=== PATIENT | female | born 1995 | race Caucasian/White ===

== ENCOUNTER 2016-07-13 10:23 | Emergency (ER) | payer OTHER ==
[2016-07-13 10:32] VITALS: BP 122/74; BMI 34.2
--- NOTE | 2016-07-13 11:03 | DR.GENAD ---
HPI - PCP Primary Care Physician: Kael - HPI Comment HPI Comment: 7 WEEKS . STARTED HAVING VAGINAL BLEEDING 03:00AM TODAY. PATIENT IS GRAVIDA3 PARA2. SHE IS AB POSITIVE. LAST DELIVERY 2013. SPOTTED MID WITH UTI BUT NO HISTORY OF VAGINAL BLEEDING. PATIENT HAVE MILD LOWER ABDOMINAL CRAMPING. PATIENT HAVE NOT SEEN OD DR. CARRASCO. DENIES DYSURIA. HER HOME TEST WAS POSITIVE. - Complaint/Symptoms Chief Complaint Doctors Comments: , VAGINAL BLEEDING. Chief Complaint:: pt last period was on 05/22/16 pt is preg and not yet went to see a doctor. pt is bleeding at this time it started at 3am this morning - Nurses notes reviewed Nurses Notes Review: Yes - Source History Provided: Patient - Mode of Arrival Mode of Arrival: Ambulatory - Timing Onset of Chief Complaint: 07/13/16 Came on: Suddenly - Duration Duration: Constant Duration: Hours - Severity Severity: Moderate PMH - PMH Past Medical History: Yes Past Medical History: Asthma Past Surgical History: Yes Surgical History: Appendectomy, - Family History History of Family Medical Conditions: Yes Family Medical History: Diabetes Mellitus, Coronary Artery Disease, Hypertension - Social History Does patient currently use any type of tobacco product: Yes Have you used tobacco products in the last 12 months: Yes Type of Tobacco Use: Cigarettes How many years tobacco product used: 8 Does any household member use tobacco: No Alcohol Use: None Do you use any recreational Drugs:: No Lives With: Spouse Lives Where: Home - infectious screening In the last 2 months have you had wt loss of >10#?: NO Have you had fever, night sweats or hemotysis?: No Have you traveled outside the country in the last 6 months?: No Isolation: Standard ROS - Review of Systems Constitutional: No Symptoms Reported Eyes: No Symptoms Reported ENTM: No Symptoms Reported Respiratoy: No Symptoms Reported Cardiovascular: No Symptoms Reported Gastrointestinal/Abdominal: No Symptoms Reported Genitourinary: Pain (LOWER ABDOMINAL CRAMPING.), Bleeding Neurological: No Symptoms Reported Musculoskeletal: No Symptoms Reported Integumentary: No Symptoms Reported Hematologic/Lymphatic: No Symptoms Reported Endocrine: No Symptoms Reported All Other Systems: Reviewed and Negative PE - Vital Signs Vitals: Temperature 99 F Pulse Rate 94 Respiratory Rate 18 Blood Pressure [Left Radial 122/72 Artery] Blood Pressure 122/74 O2 Sat by Pulse Oximetry 100 - General Limitations: No Limitations General Appearance: Alert - Head Head Exam: Normal Inspection - Eyes Eye exam: Normal Appearance - ENT ENT Exam: Normal External Ear Exam External Ear Exam: Normal External Inspection TM/Canal Exam: Bilateral Normal Nose Exam: Normal Nose Exam Mouth Exam: Normal Inspection Throat Exam: Normal Inspection - Neck Neck Exam: Trachea Midline - Chest Chest Inspection: Normal Inspection - Respiratory Respiratory Exam: Normal Lung Sounds Bilat Respiratory Exam: Bilateral Clear to Auscultation - Cardiovascular Cardiovascular Exam: Regular Rate, Normal Rhythm, Normal Heart Sounds - Abdominal Exam Abdominal Exam: Normal Bowel Sounds, Soft. negative: Tenderness - Extremities Extremities Exam: Normal Inspection - Back Back Exam: Normal Inspection - Neurologic Neurological Exam: Alert, Oriented X3 - Psychiatric Psychiatric Exam: Normal Affect, Normal Mood - Skin Skin Exam: Normal Color MDM - Additional Information Additional Information Obtained From: Family - Differential Diagnosis Differential Diagnosis: VAGINAL BLEEDING DURING , THREATENED MISCARRIAGE, ABD. PAIN Course - Treatment Treatment: SEE ORDERS. - Education/Counseling Education/Counseling: Patient, Family, Education Educated On: Diagnosis, Needs for Follow Up ROR - Labs Reviewed Result Diagrams: 07/13/16 11:00 Laboratory: WBC 10.2 X10^3/uL (3.6-10.0) H 07/13/16 11:00 RBC 4.70 X10^6/uL (3.5-5.4) 07/13/16 11:00 Hgb 13.5 g/dL (12.0-16.0) 07/13/16 11:00 Hct 40.6 % (36.0-47.0) 07/13/16 11:00 MCV 86.3 fL (80.0-100.0) 07/13/16 11:00 MCH 28.8 pg (27.0-34.0) 07/13/16 11:00 MCHC 33.4 g/dL (33.0-35.0) 07/13/16 11:00 RDW 15.3 % (11.6-16.5) 07/13/16 11:00 Plt Count 267 X10^3/uL (150.0-450.0) 07/13/16 11:00 MPV 9.2 fL (7.4-11.0) 07/13/16 11:00 Neut % 69.7 % (42.0-75.0) 07/13/16 11:00 Lymph % 21.3 % (21.0-51.0) 07/13/16 11:00 [place] % 6.8 % (0.0-13.0) 07/13/16 11:00 Eos % 1.3 % (0.9-2.9) 07/13/16 11:00 Baso % 0.9 % (0.2-1.0) 07/13/16 11:00 Neut # 7.1 x10^3/uL (2.2-4.8) H 07/13/16 11:00 Lymph # 2.2 X10^3/uL (1.3-2.9) 07/13/16 11:00 [place] # 0.7 x10^3/uL (0.3-0.8) 07/13/16 11:00 Eos # 0.1 x10^3/uL (0.0-0.2) 07/13/16 11:00 Baso # 0.1 X10^3/uL (0.0-0.1) 07/13/16 11:00 Absolute Nucleated RBC 0.0 /100WBC 07/13/16 11:00 HCG, Quant 640 mIU/mL (0-6) H 07/13/16 11:00 Specimen Type Clean catch urine 07/13/16 12:23 Urine Color Yellow (YELLOW) 07/13/16 12:23 Urine Appearance Clear (CLEAR) 07/13/16 12:23 Urine pH 8.0 (5.0 - 8.0) 07/13/16 12:23 Ur Specific [place] 1.010 (1.000-1.030) 07/13/16 12:23 Urine Protein Negative (NEGATIVE) 07/13/16 12:23 Urine Glucose (UA) Negative (NEGATIVE) 07/13/16 12:23 Urine Ketones Negative (NEGATIVE) 07/13/16 12:23 Urine Occult Blood 5+ (NEGATIVE) 07/13/16 12:23 Urine Nitrite Negative (NEGATIVE) 07/13/16 12:23 Urine Bilirubin Negative (NEGATIVE) 07/13/16 12:23 Urine Urobilinogen Normal (NORMAL) 07/13/16 12:23 Ur Leukocyte Esterase Negative (NEGATIVE) 07/13/16 12:23 Urine RBC 3-5 /HPF (NEGATIVE) 07/13/16 12:23 Urine WBC 0-2 /HPF (NEGATIVE) 07/13/16 12:23 Ur Squamous Epith Cells Few /HPF (NEGATIVE) 07/13/16 12:23 Urine Bacteria Trace /HPF (NEGATIVE) 07/13/16 12:23 Ur Culture Indicated? No/not indicated 07/13/16 12:23 - XRAY XRAY Interpreted by: Radiologist XRAY Findings: REPORT DISCUSS WITH PATIENT AND . - Diagnosis Discharge Problem: Threatened miscarriage in early , Vaginal bleeding before 22 weeks gestation, Abdominal pain affecting - Discharge Plan Disposition: HOME, SELF-CARE Condition: Stable - Follow ups/Referrals Follow ups/Referrals: TOMAS APPIAH [Primary Care Provider] - 07/15/16 - Instructions Instructions: Threatened Miscarriage, Vaginal Bleeding During , First Trimester, Abdominal Pain During , [id number], Pelvic Rest Additional Instructions: RETURN TO ED IF WORSE.
[2016-07-13 11:13] LABS: BASOPHILS # (AUTO) 0.1 X10^3/uL (0.0-0.1); BASOPHILS % (AUTO) 0.9 % (0.2-1.0); EOSINOPHILS # (AUTO) 0.1 x10^3/uL (0.0-0.2); EOSINOPHILS % (AUTO) 1.3 % (0.9-2.9); HEMATOCRIT 40.6 % (36.0-47.0); HEMOGLOBIN 13.5 g/dL (12.0-16.0); LYMPHOCYTES # (AUTO) 2.2 X10^3/uL (1.3-2.9); LYMPHOCYTES % (AUTO) 21.3 % (21.0-51.0); MEAN CORPUSCULAR HEMOGLOBIN 28.8 pg (27.0-34.0); MEAN CORPUSCULAR HGB CONC 33.4 g/dL (33.0-35.0); MEAN CORPUSCULAR VOLUME 86.3 fL (80.0-100.0); MEAN PLATELET VOLUME 9.2 fL (7.4-11.0); MONOCYTES # (AUTO) 0.7 x10^3/uL (0.3-0.8); MONOCYTES % (AUTO) 6.8 % (0.0-13.0); NEUTROPHILS # (AUTO) 7.1 x10^3/uL (2.2-4.8); NEUTROPHILS % (AUTO) 69.7 % (42.0-75.0); PLATELET COUNT 267 X10^3/uL (150.0-450.0); RED CELL DISTRIBUTION WIDTH 15.3 % (11.6-16.5); WHITE BLOOD COUNT 10.2 X10^3/uL (3.6-10.0)
[2016-07-13 12:44] LABS: BILIRUBIN,URINE NEGATIVE (NEGATIVE); BLOOD/HEMOGLOBIN,URINE 5+ (NEGATIVE); GLUCOSE, URINE NEGATIVE (NEGATIVE); KETONES,URINE NEGATIVE (NEGATIVE); LEUKOCYTE ESTERASE ,URINE NEGATIVE (NEGATIVE); NITRITES,URINE NEGATIVE (NEGATIVE); PROTEIN,URINE NEGATIVE (NEGATIVE); UROBILINOGEN,URINE NORMAL (NORMAL)
[2016-07-13 12:50] LABS: APPEARANCE,URINE CLEAR (CLEAR); BACTERIA,URINE TRACE /HPF (NEGATIVE); COLOR,URINE YELLOW (YELLOW); SQUAMOUS EPITHELIAL CELL,UR FEW /HPF (NEGATIVE)
--- NOTE | 2016-07-13 13:26 | US ---
HISTORY: Early with vaginal bleeding Study: Transvaginal ultrasound Comparison: No priors Technique: gardner scale transvaginal evaluation of the pelvis was performed. Findings: The uterus is normal in size. There is a tiny gestational sac present with a yolk sac within the ges tational sac. The gestational sac measures 6.9 millimeters compatible with 4 weeks 4 days. The yolk sac measures about 3.6 millimeters in diameter. No pole is identified. The left ovary is not i dentified. Small follicles are present involving the right ovary. The right ovary is normal in size measuring 1.5 x 2.3 centimeters. No free cul-de-sac fluid is seen. IMPRESSION: Gestational sac present within the endometrial cavity. A small yolk sac is present. No pole is yet identified. The estimated gestational age is 4 weeks 4 days. Followup scanning in 10 to 14 days is suggested. Reported By:
== END 2016-07-13 13:40 | disposition home or self-care (01) ==
LOC: ER 10:23
DX: O20.0 Threatened abortion (principal); O20.8 Other hemorrhage in early pregnancy; R10.84 Generalized abdominal pain; Z3A.01 Less than 8 weeks gestation of pregnancy
CPT/HCPCS: 36415; 76801; 81001; 84702; 85025; 86901; 99282; 99283; 99284

== ENCOUNTER 2018-02-05 06:30 | Inpatient (IN) ==
[2018-02-05] MEDS ORDERED: ANCEF 1 GRAM IV PREMIX* 1 G/50 ML BAG IV ONE (06:33)
[2018-02-05] MEDS ORDERED: LR 1000 ML IV 1,000 ML IV ONE ×2 (06:33→07:29)
[2018-02-05] MEDS ORDERED: ANCEF VIAL 1 GRAM IVP ONE (06:40)
[2018-02-05] MEDS ORDERED: D5 1/2 NS 1000 ML 1,000 ML IV SCH (06:40)
[2018-02-05] MEDS ORDERED: DURAMORPH ONE (06:58)
[2018-02-05] MEDS ORDERED: D5 1/2 NS 1L W PITOCIN 20 UNITS/L 20 UNITS/1,000 ML BAG IV ONE (07:29)
[2018-02-05 08:27] LABS: BILIRUBIN,URINE NEGATIVE (NEGATIVE); BLOOD/HEMOGLOBIN,URINE 4+ (NEGATIVE); GLUCOSE, URINE NEGATIVE (NEGATIVE); KETONES,URINE NEGATIVE (NEGATIVE); LEUKOCYTE ESTERASE ,URINE 1+ (NEGATIVE); NITRITES,URINE NEGATIVE (NEGATIVE); PH,URINE 6.5 (5.0 - 8.0); PROTEIN,URINE 3+ (NEGATIVE); UROBILINOGEN,URINE 2+ (NORMAL)
[2018-02-05 08:29] LABS: APPEARANCE,URINE SLIGHTLY HAZY (CLEAR); COLOR,URINE DARK YELLOW (YELLOW)
[2018-02-05 08:35] LABS: BACTERIA,URINE TRACE /HPF (NEGATIVE); MUCUS,URINE MODERATE /HPF (NEGATIVE); RBC,URINE 30-50 /HPF (NONE SEEN); SQUAMOUS EPITHELIAL CELL,UR MODERATE /HPF (NEGATIVE)
[2018-02-05 08:36] LABS: RENAL EPITHELIAL CELLS,URINE FEW /HPF (NEGATIVE); YEAST,URINE RARE /HPF (NEGATIVE)
[2018-02-05] MEDS ORDERED: BENADRYL INJ 50 MG VIAL IVP PRN (08:53)
[2018-02-05] MEDS ORDERED: ZOFRAN INJ 4 MG VIAL IVP PRN (08:53)
[2018-02-05] MEDS ORDERED: REGLAN INJ 10 MG VIAL IVP PRN ×2 (08:53→09:22)
[2018-02-05] MEDS ORDERED: DILAUDID INJ IVP PRN (08:53)
[2018-02-05] MEDS ORDERED: PHENERGAN INJ 25 MG IVP PRN (08:53)
[2018-02-05] MEDS ORDERED: NS 1000 ML 1,000 ML ONE (09:09)
[2018-02-05] MEDS ORDERED: D5 1/2 NS 1000 ML 1,000 ML with PITOCIN 20 UNITS IV SCH ×2 (09:22)
[2018-02-05] MEDS ORDERED: ADACEL or BOOSTRIX TDaP VACCINE IM ONE (09:22)
[2018-02-05] MEDS ORDERED: PROVENTIL NEB TX 0.083% 2.5MG/ 3ML NEB PRN (09:22)
[2018-02-05] MEDS ORDERED: PERCOCET TAB 5/325 MG PO PRN (09:22)
[2018-02-05] MEDS ORDERED: MYLICON TAB 80 MG CHEW PO PRN (09:22)
[2018-02-05] MEDS ORDERED: NARCAN INJ IVP PRN (09:22)
[2018-02-05] MEDS: BENADRYL INJ 50 MG VIAL IVP PRN ×2 (10:17→14:18)
[2018-02-05] MEDS: TORADOL 30 MG VIAL IVP PRN ×2 (10:17→23:20)
[2018-02-05] MEDS: PRENATAL PLUS PO SCH (10:19)
[2018-02-05] MEDS: ZANTAC PO SCH ×2 (10:19→20:43)
[2018-02-05] MEDS ORDERED: VERSED ONE (11:21)
[2018-02-05] MEDS ORDERED: MARCAINE SPINAL ONE (11:21)
[2018-02-05] MEDS ORDERED: DIPRIVAN VIAL ONE (11:21)
[2018-02-05] MEDS: NICOTINE PATCH TD SCH (15:55)
[2018-02-05] MEDS ORDERED: PHENERGAN INJ 25 MG IV PRN (16:23)
[2018-02-05] MEDS: CHECK PATCH XX SCH (21:30)
[2018-02-06] MEDS: TORADOL 30 MG VIAL IVP PRN (05:50)
[2018-02-06 05:54] LABS: HEMOGLOBIN 7.2 g/dL (12.0-16.0)
[2018-02-06] MEDS: PRENATAL PLUS PO SCH (09:02)
[2018-02-06] MEDS: COLACE CAP 100 MG PO SCH ×2 (09:02→21:18)
[2018-02-06] MEDS: NICOTINE PATCH TD SCH (09:03)
[2018-02-06] MEDS: ZANTAC PO SCH ×2 (09:03→21:18)
[2018-02-06] MEDS: PERCOCET TAB 5/325 MG PO PRN ×3 (10:15→22:08)
[2018-02-06] MEDS: MOTRIN TAB 800 MG PO PRN (12:36)
[2018-02-06] MEDS: BACTROBAN CREAM TOP SCH ×2 (13:26→22:13)
[2018-02-06] MEDS: FERROUS GLUCONATE PO SCH (16:18)
[2018-02-06] MEDS: CHECK PATCH XX SCH (21:17)
[2018-02-07] MEDS: MOTRIN TAB 800 MG PO PRN (00:01)
[2018-02-07] MEDS: BACTROBAN CREAM TOP SCH (06:00)
[2018-02-07] MEDS: FERROUS GLUCONATE PO SCH (06:02)
[2018-02-07] MEDS: PERCOCET TAB 5/325 MG PO PRN (08:05)
[2018-02-07] MEDS: COLACE CAP 100 MG PO SCH (08:09)
[2018-02-07] MEDS: ZANTAC PO SCH (08:09)
[2018-02-07] MEDS: PRENATAL PLUS PO SCH (08:09)
[2018-02-07] MEDS: NICOTINE PATCH TD SCH (08:09)
[2018-02-07] MEDS ORDERED: ADACEL or BOOSTRIX TDaP VACCINE IM ONE (09:21)
[2018-02-07 10:52] VITALS: BP 124/62
== END 2018-02-07 10:13 | disposition home or self-care (01) | DRG 785 ==
LOC: LD 06:30 → MED/SURG 09:06
PROVIDERS: ADMIT Specialist; ATTEND Specialist
DX: D50.8 Other iron deficiency anemias; O99.013 Anemia complicating pregnancy, third trimester; O26.893 Other specified pregnancy related conditions, third trimester; N85.8 Other specified noninflammatory disorders of uterus; Z37.0 Single live birth; Z30.2 Encounter for sterilization; Z23 Encounter for immunization; Z3A.38 38 weeks gestation of pregnancy; O13.3 Gestational [pregnancy-induced] hypertension without significant proteinuria, third trimester; O99.343 Other mental disorders complicating pregnancy, third trimester; Z01.818 Encounter for other preprocedural examination; O34.211 Maternal care for low transverse scar from previous cesarean delivery
CPT/HCPCS: 36415; 80048; 81001; 85014; 85018; 85025; 85610; 85730; 86592; 86850; 86900; 86901; 87086; 90715; A4222; S0197; J0690; J1200; J1885; J2250; J2704; J2765; J3490; J7030; J7120